=== PATIENT | male | born 1975 | race Caucasian/White ===

== ENCOUNTER 2022-07-11 13:27 | Emergency (ER) | payer SELFPAY ==
[~2022-07-11] VITALS: Ht 182.9 cm; Wt 130.0 kg
[2022-07-11] VITALS (12 sets, daily range): BP systolic 124–166; BP diastolic 75–110
[2022-07-11 14:53] LABS: BASO% 0.5 % (0-3); EOS% 2.1 % (0-8); HEMATOCRIT 47.1 % (39.0-50.0); HEMOGLOBIN 16.3 g/dl (14.0-18.0); IMMATURE GRANULOCYTES 0.6 % (0.0-5.0); MEAN CORPUSCULAR HGB 29.1 pG CALC (26.0-32.0); MEAN CORPUSCULAR HGB CONC 34.6 g/dL CAL (32.0-36.0); MONO% 6.8 % (2-13); NEUT# 5.65 thou/uL (1.82-7.42); RED BLOOD COUNT 5.61 mill/uL (4.70-6.10); RED CELL DISTRI WIDTH 12.9 % (11.5-15.5)
[2022-07-11 15:14] LABS: ALBUMIN 4.8 g/dL (3.2-5.0); ALKALINE PHOSPHATASE 67 u/l (38-126); ANION GAP 16 (6-22 (CALC)); BILIRUBIN, TOTAL 0.4 mg/dL (0.2-1.3); BUN 18 mg/dL (9-20); BUN/CREATININE RATIO 20 (12-20 (CALC)); CARBON DIOXIDE 23 mmol/l (22-30); CHLORIDE 106 mmol/l (95-108); CREATININE 0.9 mg/dL (0.7-1.3); GFR FOR AFR.AMER. > 60 ML/MIN (>=60 (CALC)); GFR OTHER RACES > 60 ML/MIN (>=60 (CALC)); POTASSIUM 3.7 mmol/l (3.5-5.1); SGOT/AST 72 u/l (17-59); SODIUM 141 mmol/l (137-146); TOTAL PROTEIN 7.9 g/dL (6.3-8.2)
[2022-07-11 15:15] LABS: D-DIMER 0.17 mg/L (0.19-0.60)
[2022-07-11 15:19] LABS: PROTHROMBIN TIME 9.9 SECONDS (9.0-12.5)
[2022-07-11] MEDS ORDERED: LOPRESSOR25 M1 PO (16:39)
== END 2022-07-11 17:02 | disposition home or self-care (01) | DRG 305 ==
LOC: ED 13:27
PROVIDERS: Nurse Practitioner
DX: I10 Essential (primary) hypertension (principal)